=== PATIENT | female | born 1980 | race Caucasian/White ===

== ENCOUNTER 2017-01-06 13:20 | Emergency (ER) | payer MEDICAID ==
[~2017-01-06] VITALS: Ht 154.9 cm; Wt 57.0 kg
[2017-01-06] MEDS ORDERED: PERTUSS(ACELL),DIPH,TET VAC/PF 0.5 ML VIAL IM ONE (14:30)
[2017-01-06] MEDS ORDERED: AMPICILLIN SODIUM/SULBACTAM NA 3 GM in SODIUM CHLORIDE 0.9% 100 ML IV ONE (14:30)
[2017-01-06] MEDS ORDERED: IBUPROFEN 800 MG TABLET PO ONE (14:45)
[2017-01-06 17:16] VITALS: BP 111/66
== END 2017-01-06 17:19 | disposition home or self-care (01) ==
LOC: EMS 13:22
DX: S61.451A Open bite of right hand, initial encounter (principal); W55.01XA Bitten by cat, initial encounter; Y93.89 Activity, other specified; Y92.488 Other paved roadways as the place of occurrence of the external cause; Y99.8 Other external cause status
CPT/HCPCS: 90471; 90715; 96365; 99284; J0295; J7050